=== PATIENT | female | born 1975 | race Caucasian/White ===

== ENCOUNTER → 2023-07-11 14:42 | Outpatient (REF) | payer BC, SELFPAY | LOC: WDC 14:42 | PROVIDERS: ATTENDING PHYSICIAN Surgery; FAMILY PHYSICIAN Internal Medicine | DX: Z12.31 Encounter for screening mammogram for malignant neoplasm of breast (principal) | CPT/HCPCS: 77063; 77067 ==

== ENCOUNTER → 2023-10-04 13:51 | Outpatient (REF) | payer BC, SELFPAY | LOC: WDC 13:51 | PROVIDERS: ATTENDING PHYSICIAN Surgery | DX: R92.2 Inconclusive mammogram (principal) | CPT/HCPCS: 76641 ==

== ENCOUNTER → 2024-06-26 06:41 | Outpatient (REF) | payer BC, SELFPAY | LOC: RAD 06:41 | PROVIDERS: ATTENDING PHYSICIAN Nurse Practitioner | DX: K21.9 Gastro-esophageal reflux disease without esophagitis (principal); K42.9 Umbilical hernia without obstruction or gangrene | CPT/HCPCS: 76705 ==

== ENCOUNTER → 2024-07-15 14:35 | Outpatient (REF) | payer BC, SELFPAY | LOC: WDC 14:35 | PROVIDERS: ATTENDING PHYSICIAN Obstetrics & Gynecology; FAMILY PHYSICIAN Internal Medicine | DX: Z12.31 Encounter for screening mammogram for malignant neoplasm of breast (principal) | CPT/HCPCS: 77063; 77067 ==

== ENCOUNTER 2024-08-06 06:21 | Day surgery (SDC) | payer BC, SELFPAY | END 2024-08-06 15:00 | disposition home or self-care (01) | LOC: GI 06:21 | PROVIDERS: ATTENDING PHYSICIAN Internal Medicine Gastroenterology | DX: Z12.11 Encounter for screening for malignant neoplasm of colon (principal); K64.8 Other hemorrhoids; R13.14 Dysphagia, pharyngoesophageal phase; R12 Heartburn; D12.0 Benign neoplasm of cecum; K63.5 Polyp of colon; K20.0 Eosinophilic esophagitis | CPT/HCPCS: 45385; 43239; 88305 ==

== ENCOUNTER 2024-08-27 06:14 | Outpatient (RCR) | payer BC, SELFPAY | END 2024-08-27 23:59 | disposition home or self-care (01) | LOC: RPT 06:14 | PROVIDERS: ATTENDING PHYSICIAN Obstetrics & Gynecology; FAMILY PHYSICIAN Internal Medicine | DX: R35.0 Frequency of micturition (principal); R33.9 Retention of urine, unspecified; M62.89 Other specified disorders of muscle; K59.00 Constipation, unspecified; Z73.6 Limitation of activities due to disability; R10.2 Pelvic and perineal pain; N81.4 Uterovaginal prolapse, unspecified | CPT/HCPCS: 97163; 97530 ==

== ENCOUNTER 2024-09-03 09:00 | Outpatient (RCR) | payer BC, SELFPAY | END 2024-09-03 23:59 | disposition home or self-care (01) | LOC: RPT 09:00 | PROVIDERS: ATTENDING PHYSICIAN Obstetrics & Gynecology; FAMILY PHYSICIAN Internal Medicine | DX: R35.0 Frequency of micturition (principal); R33.9 Retention of urine, unspecified; M62.89 Other specified disorders of muscle; K59.00 Constipation, unspecified; Z73.6 Limitation of activities due to disability; R10.2 Pelvic and perineal pain; N81.4 Uterovaginal prolapse, unspecified | CPT/HCPCS: 97014; 97112; 97530 ==

== ENCOUNTER 2024-10-08 12:14 | Outpatient (RCR) | payer BC, SELFPAY | END 2024-10-08 23:59 | disposition home or self-care (01) | LOC: RPT 12:14 | PROVIDERS: ATTENDING PHYSICIAN Obstetrics & Gynecology; FAMILY PHYSICIAN Internal Medicine | DX: R35.0 Frequency of micturition (principal); R33.9 Retention of urine, unspecified; M62.89 Other specified disorders of muscle; K59.00 Constipation, unspecified; Z73.6 Limitation of activities due to disability; R10.2 Pelvic and perineal pain; N81.4 Uterovaginal prolapse, unspecified | CPT/HCPCS: 97014; 97112; 97530 ==

== ENCOUNTER 2024-11-03 06:02 | Day surgery (SDC) | payer BC, SELFPAY ==
[2024-11-03 06:12] VITALS: BMI 23.4
[2024-11-03 06:14] VITALS: BMI 23.4
[2024-11-03 06:15] VITALS: BP 114/79
[2024-11-03] MEDS: NORMOSOL-R/PLASMALYTE-A 1000 IV (06:35)
--- NOTE | 2024-11-03 06:52 | HP.FOC2 ---
Focused History & Physical
Chief Complaint
HPI:
Chief Complaint: Ventral hernia
HPI / Indication for Planned Procedure: Patient is a 49-year-old female recently seen in outpatient surgical evaluation secondary to a painful area of swelling in the central abdominal wall superior to the umbilicus. Degree of visible swelling is
variable. Exertional activities exacerbates discomfort. Occasional episodes of mild pain. Ultrasound confirmed fascial defect approximately 1.5 cm. Swelling in the supraumbilical midline on examination. She presents today for scheduled
operative correction
Relevant Past Medical History: Other (Uterine prolapse, sinusitis)
Relevant Social History: Negative
Relevant Family History: Negative
Relevant Past Surgical History: Positive for (Breast augmentation, breast biopsy, LEEP, sinus surgery)
Review of Systems
Review of Pertinent Systems: All Systems Negative
Medication
See Medication form for detailed medications: Yes
Medication List (including Herbals & OTC):
cetirizine 10 mg tablet (Zyrtec) 10 mg PO DAILY 10/28/24
fluticasone propionate 93 mcg/actuation breath activated aerosol (Xhance) 1 spray intranasal BID 10/28/24
montelukast 10 mg tablet (Singulair) 10 mg PO HS 10/28/24
yzdmyekh-[id number]-mhng-FA-Ca carb-vit K 18 mg iron-400 mcg-500 mg tablet 1 tab PO DAILY 10/28/24
pantoprazole 40 mg tablet,delayed release 40 mg PO DAILY 10/28/24
Medications Reviewed: Yes
Allergies and Reactions
Patient has Allergies: Yes
Noted Allergies and Reactions:
Allergy/AdvReac Type Severity Reaction Status Date / Time
amoxicillin (From Augmentin) Allergy Hives Verified 11/03/24 06:12
clavulanic acid (From Allergy Hives Verified 11/03/24 06:12
Augmentin)
clindamycin (Clindamycin) Allergy vomiting Verified 11/03/24 06:12
Pertinent Physical Exam
All Other Systems: Negative
Head/Neck: Normal
Lungs: Normal
Heart: Normal
Abdomen: Other (Ventral hernia superior to the umbilicus.)
Extremities: Normal
Neurological: Normal
Diagnosis / Assessment
49-year-old female presenting for scheduled operative correction supraumbilical ventral hernia
Plan / Procedure
Open ventral hernia repair with possible mesh
Anesthesia/Sedation to be done by Anesthesia Provider: Yes
--- NOTE | 2024-11-03 06:55 | W.SUR.PREOP ---
Pre-Operative Surgical Note
-
I have examined this patient prior to the performance of the scheduled procedure.
The patient's condition is unchanged from the time of the current History and
Physical and the patient is able to undergo the scheduled procedure.
--- NOTE | 2024-11-03 07:45 | W.IMMPOSTOP ---
Addendum entered and electronically signed by Elan Smith MD 11/03/24 07:52:
#[id number]
Original Note:
Surgical Immed Post Op Note
-
Primary Surgeon: Elan Smith
Assisting Surgeon: Terri Myers PA-c
Pre-op Diagnosis: Ventral hernia
Post-op Diagnosis: Ventral hernia; 1 cm
Procedure Performed: Open primary ventral hernia repair
Anesthesia Type: MAC +1% lidocaine/0.25% Marcaine with epinephrine
Specimen / Cultures: None
Estimated Blood Loss: 4 mL
Complications: None immediate
Operative Findings: Fat-containing chronically incarcerated ventral hernia. 1 cm fascial defect. No adjacent secondary hernias. Primary repair with interrupted 0 PDS sutures.
The assistance of Terri Myers PA-C was required due to the complexity of the procedure. During the procedure Terri Gallagher PA-C assisted with tissue retraction for exposure and closure of the incision site. I was present for the entirety of the
operative procedure.
[2024-11-03 07:57] VITALS: BP 108/61
[2024-11-03 08:00] VITALS: BP 105/66
[2024-11-03 08:15] VITALS: BP 117/102
[2024-11-03 08:30] VITALS: BP 106/71
== END 2024-11-03 08:54 | disposition home or self-care (01) ==
LOC: SDS 06:02
PROVIDERS: ATTENDING PHYSICIAN Surgery
DX: K43.9 Ventral hernia without obstruction or gangrene (principal)
CPT/HCPCS: 49591

== ENCOUNTER 2025-03-26 06:26 | Day surgery (SDC) | payer BC, SELFPAY | END 2025-03-26 11:50 | disposition home or self-care (01) | LOC: GI 06:26 | PROVIDERS: ATTENDING PHYSICIAN Internal Medicine Gastroenterology | DX: R13.10 Dysphagia, unspecified (principal); R12 Heartburn; K22.2 Esophageal obstruction; K44.9 Diaphragmatic hernia without obstruction or gangrene; K20.0 Eosinophilic esophagitis | CPT/HCPCS: 43239; 88305 ==